=== PATIENT | female | born 1940 | race Caucasian/White ===

== ENCOUNTER 2016-12-30 08:22 | Inpatient (IN) | payer MEDICARE ==
[~2016-12-30] VITALS: Ht 154.9 cm; Wt 51.1 kg
[2016-12-30] MEDS ORDERED: HEPARIN 25,000 UNITS/500ML PMX 500 ML ONE (08:28)
[2016-12-30] MEDS ORDERED: SODIUM CHLORIDE FLUSH 10ML SYR IVF ONE (08:30)
[2016-12-30] MEDS ORDERED: HEPARIN 5,000 UNITS/ML, 1ML IV PRN ×2 (09:00→12:00)
[2016-12-30] MEDS ORDERED: HEPARIN 25,000 UNITS/500ML PMX 500 ML IV PRN ×2 (09:00→11:00)
[2016-12-30] MEDS ORDERED: HEPARIN 5,000 UNITS/ML, 1ML IV ONE ×2 (09:00→12:00)
[2016-12-30] MEDS ORDERED: SODIUM CHLORIDE FLUSH 10ML SYR IVF PRN (09:00)
[2016-12-30 09:16] LABS: IS PT STATUS REG ER OR PRE ER? YES
[2016-12-30] MEDS ORDERED: LABETALOL 5MG/ML 40ML VIAL IVPush PRN (10:00)
[2016-12-30] MEDS ORDERED: DOCUSATE 100 MG CAPSULE PO PRN (10:00)
[2016-12-30] MEDS ORDERED: ACETAMINOPHEN 325 MG TABLET PO PRN (10:00)
[2016-12-30] MEDS ORDERED: ONDANSETRON 2MG/ML, 2ML IVPush PRN (10:00)
[2016-12-30] MEDS ORDERED: HYDROcodone/APAP 5/325 TABLET PO PRN (10:00)
[2016-12-30] MEDS ORDERED: BISACODYL 10 MG SUPP PR PRN (10:00)
[2016-12-30] MEDS ORDERED: NITROGLYCERIN 0.4 MG BOTTLE (25 TABS) SL PRN (10:00)
[2016-12-30] MEDS ORDERED: POLYETHYLENE GLYCOL 17 GM PACKET PO PRN (10:00)
[2016-12-30] MEDS ORDERED: MORPHINE SULFATE 4 MG/ML, 1ML IVPush PRN (10:00)
[2016-12-30 10:51] VITALS: BP 154/76
[2016-12-30 12:45] VITALS: BP 155/78
[2016-12-30] MEDS: NS + 20MEQ KCL 1,000 ML IV SCH (12:55)
[2016-12-30 13:14] LABS: IS PT STATUS REG ER OR PRE ER? NO
[2016-12-30] MEDS ORDERED: DIPH25CA61 PO (15:07)
[2016-12-30] MEDS ORDERED: SUCR1TAB PO (15:07)
[2016-12-30] MEDS ORDERED: OMEP40CA6 PO (15:07)
[2016-12-30] MEDS ORDERED: BISA5TAB5 PO (15:07)
[2016-12-30] MEDS ORDERED: DILT180C59 PO (15:07)
[2016-12-30] MEDS ORDERED: PRAV40TA2 PO (15:07)
[2016-12-30] MEDS ORDERED: TRAZ150T68 PO (15:07)
[2016-12-30] MEDS ORDERED: FENTANYL PF 100 MCG/2ML ONE (17:10)
[2016-12-30] MEDS ORDERED: MIDAZOLAM 1 MG/ML, 5ML ONE (17:10)
[2016-12-30] MEDS ORDERED: TICAGRELOR 90 MG TABLET ONE (17:11)
[2016-12-30] MEDS ORDERED: LIDOCAINE 2%, 20ML ONE (17:11)
[2016-12-30] MEDS ORDERED: BIVALIRUDIN 250 MG ONE (17:11)
[2016-12-30] MEDS ORDERED: HEPARIN 1,000 UNITS/ML, 10ML ONE (17:11)
[2016-12-30] MEDS: SODIUM CHLORIDE 0.9% 1,000 ML IV SCH (17:55)
[2016-12-30] MEDS ORDERED: METOPROLOL TARTRATE 25 MG TABLET PO SCH (18:00)
[2016-12-30 19:33] LABS: IS PT STATUS REG ER OR PRE ER? NO
[2016-12-30 19:39] VITALS: BP 159/81
[2016-12-30 21:23] VITALS: BP 163/73
[2016-12-30] MEDS: METOPROLOL TARTRATE 25 MG TABLET PO SCH (21:25)
[2016-12-31] MEDS: NS + 20MEQ KCL 1,000 ML IV SCH ×2 (01:20→14:40)
[2016-12-31 01:43] VITALS: BP 162/75
[2016-12-31] MEDS: SODIUM CHLORIDE 0.9% 1,000 ML IV SCH (01:55)
[2016-12-31 05:45] VITALS: BP 162/73
[2016-12-31] MEDS: ASPIRIN 325 MG TABLET EC PO SCH (05:46)
[2016-12-31 06:37] LABS: BLOOD UREA NITROGEN 8 mg/dL (7-18)
[2016-12-31 06:40] LABS: DIFF TOTAL CELLS COUNTED 100 CELL DIFF
[2016-12-31 06:43] LABS: VERIFY COUNTS? YES
[2016-12-31 08:56] VITALS: BP 153/53
[2016-12-31] MEDS: METOPROLOL TARTRATE 25 MG TABLET PO SCH ×2 (10:11→20:31)
[2016-12-31] MEDS: ISOSORBIDE MONONITRATE ER 30 MG TABLET PO SCH (10:12)
[2016-12-31] MEDS: TICAGRELOR 90 MG TABLET PO SCH ×2 (12:10→20:31)
[2016-12-31] MEDS: LISINOPRIL 10 MG TABLET PO SCH (12:10)
[2016-12-31 15:59] VITALS: BP 125/68
[2016-12-31 20:27] VITALS: BP 129/67
[2016-12-31 21:18] LABS: PATH.CAST-FLAG NOT PRESENT; SPERM-FLAG NOT PRESENT; SRC-FLAG NOT PRESENT; XTAL-FLAG NOT PRESENT; YLC-FLAG NOT PRESENT
[2017-01-01 01:58] VITALS: BP 160/72
[2017-01-01] MEDS: NS + 20MEQ KCL 1,000 ML IV SCH (04:00)
[2017-01-01] MEDS: ASPIRIN 325 MG TABLET EC PO SCH (06:43)
[2017-01-01 07:33] VITALS: BP 178/74
[2017-01-01] MEDS: TICAGRELOR 90 MG TABLET PO SCH (07:34)
[2017-01-01] MEDS: METOPROLOL TARTRATE 25 MG TABLET PO SCH (07:34)
[2017-01-01] MEDS: LISINOPRIL 10 MG TABLET PO SCH (07:34)
[2017-01-01] MEDS: ISOSORBIDE MONONITRATE ER 30 MG TABLET PO SCH (07:34)
[2017-01-01 08:50] VITALS: BP 142/70
[2017-01-01 13:29] VITALS: BP 106/63
[2017-01-01] MEDS ORDERED: NITR0.4T SL (16:41)
[2017-01-01] MEDS ORDERED: ISOS30TA8 PO (16:41)
[2017-01-01] MEDS ORDERED: TICA90TA PO (16:41)
[2017-01-01] MEDS ORDERED: LISI-167 PO (16:41)
[2017-01-01] MEDS ORDERED: ATOR40TA78 PO (16:41)
[2017-01-01] MEDS ORDERED: ASPI-621 PO (16:41)
[2017-01-01] MEDS ORDERED: METO25TA35 PO (16:41)
[2017-01-01] MEDS ORDERED: ATORVASTATIN 40 MG TABLET PO SCH (21:00)
[2017-01-02] MEDS ORDERED: ASPIRIN 81 MG TABLET EC PO SCH (06:00)
== END 2017-01-01 17:45 | disposition home or self-care (01) | DRG 281 ==
LOC: ED 08:34 → EDIP 08:55 → 5SO 10:43
PROVIDERS: ADMIT Hospitalist; ATTEND Internal Medicine
PROC: 4A023N7 Measurement of Cardiac Sampling and Pressure, Left Heart, Percutaneous Approach (ICD-10-PCS; principal; 2016-12-30)
PROC: B2111ZZ Fluoroscopy of Multiple Coronary Arteries using Low Osmolar Contrast (ICD-10-PCS; 2016-12-30)
PROC: B2131ZZ Fluoroscopy of Multiple Coronary Artery Bypass Grafts using Low Osmolar Contrast (ICD-10-PCS; 2016-12-30)
DX: I25.110 Atherosclerotic heart disease of native coronary artery with unstable angina pectoris (principal); I21.4 Non-ST elevation (NSTEMI) myocardial infarction; E87.6 Hypokalemia; I11.9 Hypertensive heart disease without heart failure; E78.5 Hyperlipidemia, unspecified; I25.2 Old myocardial infarction; Z85.038 Personal history of other malignant neoplasm of large intestine; Z87.891 Personal history of nicotine dependence; Z95.1 Presence of aortocoronary bypass graft; Z88.0 Allergy status to penicillin; Z88.2 Allergy status to sulfonamides
CPT/HCPCS: 36415; 80048; 80061; 81001; 84484; 85025; 85520; 87086; 93005; 93306; 93459; 96365; 96366; 99156; 99157; C1769; C1894; J0583; J1644; J2250; J3010; J3480; J3490; Q9967